=== PATIENT | male | born 1990 | race Caucasian/White ===

== ENCOUNTER 2022-11-19 22:27 | Emergency (ER) | payer SELFPAY ==
[2022-11-19] MEDS ORDERED: Thiamine 100 MG Tab PO ONE (22:53)
[2022-11-19] MEDS ORDERED: Folic Acid 1 MG Tab PO ONE (22:53)
[2022-11-19 23:31] LABS: CARBON DIOXIDE,CO2 27.6 mmol/L (21.0-32.0); POTASSIUM,K 3.4 mmol/L (3.5-5.1)
[2022-11-20] MEDS ORDERED: Ondansetron 4 MG Tab.DIS PO ONE (01:13)
[2022-11-20] MEDS ORDERED: OLANZapine 5 MG Tab PO ONE (01:43)
== END 2022-11-20 09:14 ==
LOC: MW.ED 22:27
DX: F10.10 Alcohol abuse, uncomplicated (principal); Y90.8 Blood alcohol level of 240 mg/100 ml or more; Z88.6 Allergy status to analgesic agent; Z20.822 Contact with and (suspected) exposure to COVID-19
CPT/HCPCS: 36415; 80053; 80305; 80307; 83735; 85025; 87635; 99284; A9270; 99285; U0002

== ENCOUNTER 2023-01-14 21:49 | Emergency (ER) | payer SELFPAY | END 2023-01-14 22:48 | disposition left against medical advice (07) | LOC: MW.ED 21:49 | DX: Z53.21 Procedure and treatment not carried out due to patient leaving prior to being seen by health care provider (principal) ==

== ENCOUNTER 2023-12-03 02:59 | Emergency (ER) | payer SELFPAY ==
[2023-12-03 03:13] LABS: BASOPHILS ABSOLUTE AUTO 0.17 K/uL (0.00-0.20); BASOPHILS PERCENT AUTO 1.3 % (0.0-1.0); EOSINOPHILS ABSOLUTE AUTO 0.44 K/uL (0.00-0.45); EOSINOPHILS PERCENT AUTO 3.5 % (0.0-6.0); HEMATOCRIT 46.5 % (42.0-52.0); HEMOGLOBIN 16.9 g/dL (14.0-18.0); IMMATURE GRAN PERCENT AUTO 0.8 % (0.0-0.4); LYMPHOCYTES ABSOLUTE AUTO 3.55 K/uL (1.00-4.80); LYMPHOCYTES PERCENT AUTO 27.9 % (24.0-44.0); MEAN CORPUSCULAR HEMOGLOBIN 33.3 pg (28.0-32.0); MEAN CORPUSCULAR HGB CONC 36.3 g/dL (32.0-36.0); MEAN CORPUSCULAR VOLUME 91.5 fL (83.0-99.0); MEAN PLATELET VOLUME 8.3 fL (9.4-12.4); MONOCYTES ABSOLUTE AUTO 1.15 K/uL (0.00-0.80); NEUTROPHILS PERCENT AUTO 57.5 % (41.0-71.0); PLATELET COUNT,PLT 415 K/uL (150-400); RED BLOOD CELL COUNT 5.08 M/uL (4.52-5.90); WHITE BLOOD CELL COUNT,WBC 12.71 K/uL (3.9-11.3)
[2023-12-03] MEDS: Ondansetron 4 MG/2 ML SDV IVPUSH ONE (03:19)
[2023-12-03] MEDS: Sodium Chloride 0.9% 10 ML Syringe FLUSH PRN (03:20)
[2023-12-03] MEDS: Sodium Chloride 0.9% 2.5 ML Syringe FLUSH PRN (03:20)
[2023-12-03] MEDS: Sodium Chloride 0.9% 1,000 ML IV STA (03:20)
[2023-12-03 03:36] LABS: A/G RATIO 0.9 (0.9-1.6); ALBUMIN 3.7 g/dL (3.4-5.0); BILIRUBIN TOTAL 0.4 mg/dL (0.2-1.0); CALCIUM 8.8 mg/dL (8.5-10.1); CREATININE 0.9 mg/dL (0.8-1.3); EST CRCL DRUG DOSING (CG) 118.29 mL/min; POTASSIUM,K 3.4 mmol/L (3.5-5.1); PROTEIN TOTAL,TP 7.7 g/dL (6.4-8.2)
== END 2023-12-03 04:21 | disposition left against medical advice (07) ==
LOC: MW.ED 02:59
DX: F10.129 Alcohol abuse with intoxication, unspecified (principal); R11.10 Vomiting, unspecified; Z88.6 Allergy status to analgesic agent; Z88.5 Allergy status to narcotic agent
CPT/HCPCS: 36415; 80053; 85025; 96361; 96374; 99284; J2405; J3490; J7030

== ENCOUNTER 2024-02-03 10:02 | Emergency (ER) | payer SELFPAY ==
[2024-02-03 10:14] LABS: BASOPHILS ABSOLUTE AUTO 0.11 K/uL (0.00-0.20); EOSINOPHILS ABSOLUTE AUTO 0.47 K/uL (0.00-0.45); EOSINOPHILS PERCENT AUTO 4.1 % (0.0-6.0); HEMATOCRIT 40.4 % (42.0-52.0); HEMOGLOBIN 14.1 g/dL (14.0-18.0); IMMATURE GRAN ABSOLUTE AUTO 0.06 K/uL (0.00-0.05); IMMATURE GRAN PERCENT AUTO 0.5 % (0.0-0.4); LYMPHOCYTES ABSOLUTE AUTO 2.38 K/uL (1.00-4.80); LYMPHOCYTES PERCENT AUTO 20.8 % (24.0-44.0); MEAN CORPUSCULAR HGB CONC 34.9 g/dL (32.0-36.0); MEAN CORPUSCULAR VOLUME 94.6 fL (83.0-99.0); MEAN PLATELET VOLUME 8.1 fL (9.4-12.4); MONOCYTES ABSOLUTE AUTO 0.84 K/uL (0.00-0.80); MONOCYTES PERCENT AUTO 7.3 % (0.0-8.0); NEUTROPHILS ABSOLUTE AUTO 7.59 K/uL (1.80-7.70); NEUTROPHILS PERCENT AUTO 66.3 % (41.0-71.0); PLATELET COUNT,PLT 395 K/uL (150-400); RED BLOOD CELL COUNT 4.27 M/uL (4.52-5.90); WHITE BLOOD CELL COUNT,WBC 11.45 K/uL (3.9-11.3)
[2024-02-03 10:32] LABS: INR 0.96 (0.86-1.11); PTT,PARTIAL THROMBOPLSTIN TIME 29.1 SEC (23.9-30.7)
[2024-02-03 10:40] LABS: A/G RATIO 0.8 (0.9-1.6); BILIRUBIN TOTAL 0.4 mg/dL (0.2-1.0); CALCIUM 8.2 mg/dL (8.5-10.1); CARBON DIOXIDE,CO2 26.1 mmol/L (21.0-32.0); CREATININE 0.9 mg/dL (0.8-1.3); EST CRCL DRUG DOSING (CG) 114.56 mL/min; POTASSIUM,K 3.7 mmol/L (3.5-5.1)
[2024-02-03] MEDS: Sodium Chloride 0.9% 2.5 ML Syringe FLUSH PRN (10:46)
[2024-02-03] MEDS: Sodium Chloride 0.9% 1,000 ML IV STA (10:46)
[2024-02-03] MEDS: Sodium Chloride 0.9% 10 ML Syringe FLUSH PRN (10:46)
[2024-02-03 11:06] LABS: CORONAVIRUS COVID-19 NAA NEGATIVE (NEGATIVE); INFLUENZA A NAA NEGATIVE (NEGATIVE); INFLUENZA B NAA NEGATIVE (NEGATIVE)
[2024-02-03] MEDS: Iopamidol 755 MG/ML 500 ML Multipack Bottle IVPUSH STA (11:54)
[2024-02-04] MEDS ORDERED: Sodium Bicarbonate 150 MEQ in Dextrose 5% in Water 1,000 ML IV ONE (01:30)
[2024-02-04] MEDS ORDERED: EPINEPHrine 1 MG in Sodium Chloride 0.9% 100 ML IV SCH (01:30)
== END 2024-02-03 13:23 | disposition home or self-care (01) ==
LOC: MW.ED 10:02
DX: J18.9 Pneumonia, unspecified organism (principal); U07.0 Vaping-related disorder; Z75.8 Other problems related to medical facilities and other health care; Z88.6 Allergy status to analgesic agent; Z88.5 Allergy status to narcotic agent; Z79.899 Other long term (current) drug therapy
CPT/HCPCS: 0240U; 36415; 71275; 80053; 83690; 84484; 85025; 85610; 85730; 93005; 96360; 99285; J3490; J7030; Q9967

== ENCOUNTER 2024-02-04 00:38 | Emergency (ER) | payer SELFPAY ==
[~2024-02-04 00:38] MED LIST: Naloxone 0.4 MG/ML SDV ONE
[2024-02-04] MEDS: Naloxone 0.4 MG/ML SDV IVPUSH ONE ×2 (00:38→05:18)
[2024-02-04] MEDS: Sodium Bicarbonate 8.4% 50 MEQ/50 ML Syringe IVPUSH ONE ×6 (00:38→05:14)
[2024-02-04] MEDS: EPINEPHrine 1:10,000 1 MG/10 ML Syringe IVPUSH ONE ×19 (00:38→04:17)
[2024-02-04] MEDS ORDERED: Atropine 0.1 MG/ML 10 ML Syringe IV ONE ×2 (00:39)
[2024-02-04] MEDS: Norepinephrine Bit/D5W Premix 250 ML IV SCH (00:43)
[2024-02-04 00:50] LABS: PCO2 VENOUS > 98 mmHG (41-51); PH,VENOUS < 6.82 (7.31-7.41); PO2 VENOUS 39 mmHG (80-100)
[2024-02-04 00:51] LABS: HEMATOCRIT 41.1 % (42.0-52.0); HEMOGLOBIN 12.6 g/dL (14.0-18.0); MEAN CORPUSCULAR HEMOGLOBIN 33.1 pg (28.0-32.0); MEAN CORPUSCULAR HGB CONC 30.7 g/dL (32.0-36.0); MEAN CORPUSCULAR VOLUME 107.9 fL (83.0-99.0); NRBC ABSOLUTE 0.31 K/uL (0.00-0.02); NRBC PERCENT 3.4 /100WBC (0.0-0.2); PLATELET COUNT,PLT 294 K/uL (150-400); RED BLOOD CELL COUNT 3.81 M/uL (4.52-5.90); WHITE BLOOD CELL COUNT,WBC 9.19 K/uL (3.9-11.3)
[2024-02-04 00:56] LABS: APPEARANCE,URINE CLEAR; BILIRUBIN,URINE NEGATIVE (NEGATIVE); COLOR,URINE YELLOW; GLUCOSE,URINE NEGATIVE (NEGATIVE); KETONES,URINE NEGATIVE (NEGATIVE); LEUKOCYTE ESTERASE,URINE NEGATIVE (NEGATIVE); NITRITE,URINE NEGATIVE (NEGATIVE); OCCULT BLOOD,URINE TRACE-INTACT (NEGATIVE); PH,URINE 5.5 (5.0-8.0); PROTEIN,URINE NEGATIVE (NEGATIVE); UROBILINOGEN,URINE 0.2 EU/dL (<2.0)
[2024-02-04 01:04] LABS: AMPHETAMINES SCREEN, URINE NEGATIVE (CUTOFF=500); BACTERIA,URINE FEW (NEGATIVE); BARBITURATE SCREEN,URINE NEGATIVE (CUTOFF=200); BENZODIAZEPINES SCREEN,URINE NEGATIVE (CUTOFF=150); BUPRENORPHINE SCREEN,URINE NEGATIVE (CUTOFF=10); EPITHELIAL CELLS,URINE RARE (NONE-FEW); METHADONE SCREEN, URINE NEGATIVE (CUTOFF=200); METHAMPHETAMINES SCREEN, URINE NEGATIVE (CUTOFF=500); OXYCODONE SCREEN,URINE NEGATIVE (CUT0FF=100); PCP SCREEN,URINE NEGATIVE (CUTOFF=25); THC SCREEN,URINE 20 NG/ML NEGATIVE (CUTOFF=50)
[2024-02-04 01:11] LABS: BASE EXCESS ARTERIAL -20.6 (-2.0-3.0); BICARBONATE,ARTERIAL 12 mEq/L (22-26); PCO2 ARTERIAL 58 mmHG (35-45); PO2 ARTERIAL 183 mmHG (80-105)
[2024-02-04] MEDS: SODIUM CHLORIDE 0.9% IV ONE (01:20)
[2024-02-04] MEDS: EPINEPHrine 1 MG in Dextrose 5% in Water 99 ML IV SCH (01:20)
[2024-02-04] MEDS: EPINEPHRINE IV ONE (01:20)
[2024-02-04] MEDS: Sodium Chloride 0.9% 1,000 ML IV ONE (01:32)
[2024-02-04 01:44] LABS: BASOPHILS ABSOLUTE MAN 0.37 K/uL (0.00-0.20); BASOPHILS PERCENT MAN 4 % (0-1); EOSINOPHILS ABSOLUTE MAN 0.28 K/uL (0.00-0.45); EOSINOPHILS PERCENT MAN 3 % (0-6); LYMPHOCYTES ABSOLUTE MAN 6.07 K/uL (1.00-4.80); LYMPHOCYTES PERCENT MAN 66 % (24-44); METAMYELOCYTE ABSOLUTE MAN 0.18; METAMYELOCYTE PERCENT MAN 2 %; MONOCYTES ABSOLUTE MAN 0.55 K/uL (0.00-0.80); MONOCYTES PERCENT MAN 6 % (0-8); MYELOCYTE ABSOLUTE MAN 0.09; MYELOCYTE PERCENT MAN 1 %; NRBC MANUAL 2 %; SEG NEUTROPHILS ABSOLUTE MAN 1.65 K/uL (1.80-7.70); SEG NEUTROPHILS PERCENT MAN 18 % (41-71)
[2024-02-04 01:45] LABS: ACANTHOCYTES FEW
[2024-02-04] MEDS ORDERED: EPINEPHrine 1:10,000 1 MG/10 ML Syringe IVPUSH ONE (01:45)
[2024-02-04 01:46] LABS: A/G RATIO 0.7 (0.9-1.6); ALBUMIN 2.3 g/dL (3.4-5.0); ALKALINE PHOSPHATASE 135 U/L (46-116); BILIRUBIN TOTAL 0.2 mg/dL (0.2-1.0); BLOOD UREA NITROGEN,BUN 10 mg/dL (7.0-18.0); CALCIUM 8.3 mg/dL (8.5-10.1); CARBON DIOXIDE,CO2 16.8 mmol/L (21.0-32.0); CHLORIDE,CL 108 mmol/L (98-107); CREATININE 1.4 mg/dL (0.8-1.3); EST CRCL DRUG DOSING (CG) 80.83 mL/min; GLUCOSE RANDOM 310 mg/dL (74-106); POTASSIUM,K 5.7 mmol/L (3.5-5.1); PROTEIN TOTAL,TP 5.5 g/dL (6.4-8.2); SODIUM,NA 147 mmol/L (136-148)
[2024-02-04 01:48] LABS: ALANINE AMINOTRANSFERASE,ALT 1351 IU/L (14-63); ESTIMATED GFR 67 mL/min (>60)
[2024-02-04 01:49] LABS: ETHANOL BLOOD MEDICAL 369 mg/dL
[2024-02-04 01:51] LABS: BASE EXCESS ARTERIAL -17.1 (-2.0-3.0); BICARBONATE,ARTERIAL 13 mEq/L (22-26); PCO2 ARTERIAL 50 mmHG (35-45); PO2 ARTERIAL 289 mmHG (80-105)
[2024-02-04] MEDS: Lactated Ringers 1,000 ML IV ONE (02:07)
[2024-02-04 02:08] LABS: ASPARTATE AMNIOTRANSFERASE,AST 2803 IU/L (15-37)
[2024-02-04 02:23] LABS: BASE EXCESS ARTERIAL -16.3 (-2.0-3.0); BICARBONATE,ARTERIAL 13 mEq/L (22-26); PCO2 ARTERIAL 45 mmHG (35-45); PO2 ARTERIAL 181 mmHG (80-105)
[2024-02-04] MEDS: DOPamine/Dextrose 5%-Water 400 MG/250 ML BAG IV SCH (02:28)
[2024-02-04] MEDS: Albuterol/Ipratropium 3.0-0.5 MG/3 ML Neb Soln NEB ONE (02:34)
[2024-02-04] MEDS: Octreotide 500 MCG in Sodium Chloride 0.9% 495 ML IV SCH (02:37)
[2024-02-04] MEDS: Pantoprazole 80 MG in Sodium Chloride 0.9% 10 ML IVPUSH ONE (02:49)
[2024-02-04] MEDS: Benzocaine 20% Topical Spray UD MUCMEM ONE (02:49)
[2024-02-04] MEDS: Calcium Gluconate 10% 1 GM/10 ML SDV IVPUSH ONE (02:51)
[2024-02-04 03:23] LABS: BASE EXCESS ARTERIAL -16.8 (-2.0-3.0); BICARBONATE,ARTERIAL 13 mEq/L (22-26); PCO2 ARTERIAL 48 mmHG (35-45); PO2 ARTERIAL 91 mmHG (80-105)
[2024-02-04 03:25] LABS: HEMATOCRIT 36.8 % (42.0-52.0); HEMOGLOBIN 11.8 g/dL (14.0-18.0); MEAN CORPUSCULAR HEMOGLOBIN 32.8 pg (28.0-32.0); MEAN CORPUSCULAR HGB CONC 32.1 g/dL (32.0-36.0); MEAN CORPUSCULAR VOLUME 102.2 fL (83.0-99.0); MEAN PLATELET VOLUME 8.6 fL (9.4-12.4); NRBC ABSOLUTE 0.73 K/uL (0.00-0.02); NRBC PERCENT 2.5 /100WBC (0.0-0.2); PLATELET COUNT,PLT 284 K/uL (150-400); WHITE BLOOD CELL COUNT,WBC 29.34 K/uL (3.9-11.3)
[2024-02-04 03:32] LABS: INR 1.08 (0.86-1.11)
[2024-02-04] MEDS: Sodium Bicarbonate 150 MEQ in Dextrose 5% in Water 1,000 ML IV ONE (03:45)
[2024-02-04] MEDS: Ketamine 500 mg/10 ML MDV IV ONE (04:00)
[2024-02-04 04:19] LABS: BAND ABSOLUTE MAN 2.05; BAND PERCENT MAN 7 %; EOSINOPHILS ABSOLUTE MAN 0.88 K/uL (0.00-0.45); EOSINOPHILS PERCENT MAN 3 % (0-6); LYMPHOCYTES PERCENT MAN 30 % (24-44); MONOCYTES ABSOLUTE MAN 1.47 K/uL (0.00-0.80); MONOCYTES PERCENT MAN 5 % (0-8); MYELOCYTE ABSOLUTE MAN 0.29; MYELOCYTE PERCENT MAN 1 %; SEG NEUTROPHILS ABSOLUTE MAN 15.84 K/uL (1.80-7.70); SEG NEUTROPHILS PERCENT MAN 54 % (41-71)
[2024-02-04] MEDS: Dexamethasone 10 MG/ML SDV IVPUSH ONE (05:17)
[2024-02-04] MEDS: Hydrocortisone Sodium Succinate 100 MG/2 ML SDV IVPUSH ONE (05:23)
[2024-02-04] MEDS: Norepinephrine Bit/D5W Premix 250 ML ONE (06:07)
[2024-02-04] MEDS: Tranexamic Acid 1,000 MG in Sodium Chloride 0.9% 100 ML IV ONE (06:09)
[2024-02-04] MEDS: Naloxone 0.4 MG/ML SDV ONE (06:28)
== END 2024-02-04 05:30 ==
LOC: MW.ED 00:38
DX: I46.9 Cardiac arrest, cause unspecified (principal); Z88.8 Allergy status to other drugs, medicaments and biological substances
CPT/HCPCS: 36415; 36556; 36600; 43752; 51702; 71045; 74018; 80053; 80143; 80305; 80307; 81001; 82803; 83690; 84484; 85018; 85025; 85610; 86850; 86900; 86901; 86920; 92950; 93005; 96361; 96365; 96366; 96368; 96375; 96376; 99285; C9113; J0171; J0461; J0612; J1100; J1265; J1720; J2310; J2354; J3490; J7030; J7040; J7060; J7120; P9016; 64488